=== PATIENT | male | born 1980 ===

== ENCOUNTER 2022-03-08 13:22 | Day surgery (SDC) | payer SELFPAY ==
[2022-03-08] MEDS ORDERED: Boostrix 0.5 ML (Tdap) VIAL ONE (13:36)
[2022-03-08] MEDS ORDERED: Bacitracin 1 PK ONE (13:36)
[2022-03-08] MEDS ORDERED: Lidocaine 1% PF 5 ML VIAL ONE ×2 (13:38→18:29)
[2022-03-08] MEDS ORDERED: HYDROcodone/Acetaminophen 5/325 mg Tablet ONE (14:09)
[2022-03-08] MEDS ORDERED: CEFAZOLIN 2 GM VIAL ONE ×2 (14:20→18:16)
[2022-03-08 15:51] LABS: SARS-CoV-2 NAA Rapid Test Not Detected (NotDetected)
[2022-03-08] MEDS ORDERED: Neomycin-Polymyxin 1 ML AMP ONE (18:01)
[2022-03-08] MEDS ORDERED: Bupivacaine 0.25% HCL 30 ML VIAL ONE (18:01)
[2022-03-08] MEDS ORDERED: Bacitracin Zinc Ointment 30 gm TUBE ONE (18:01)
[2022-03-08] MEDS ORDERED: Bupivacaine PF 0.5% 30 ML VIAL ONE (18:01)
[2022-03-08] MEDS ORDERED: HYDROmorphone 0.5 MG/0.5 ML SYRINGE ONE (18:10)
[2022-03-08] MEDS ORDERED: Sodium Chloride 0.9% 100 ML ONE (18:16)
[2022-03-08] MEDS ORDERED: Ketorolac Tromethamine 30 MG/ML VIAL ONE (18:29)
[2022-03-08] MEDS ORDERED: PROPOFOL 200 MG/20 ML VIAL ONE (18:29)
[2022-03-08] MEDS ORDERED: Ondansetron PF 4 MG/2 ML Vial ONE (18:29)
[2022-03-08] MEDS ORDERED: Dexamethasone 20 MG/5 ML VIAL ONE (18:29)
== END 2022-03-08 21:00 | disposition home or self-care (01) ==
LOC: ERS 13:22 → SDC 16:13
PROVIDERS: ATTEND Orthopaedic Surgery Hand Surgery
PROC: 0PBV0ZZ Excision of Left Finger Phalanx, Open Approach (ICD-10-PCS; principal; 2022-03-08)
PROC: 0HQQXZZ Repair Finger Nail, External Approach (ICD-10-PCS; principal; 2022-03-08)
DX: S62.631B Displaced fracture of distal phalanx of left index finger, initial encounter for open fracture (principal); Z20.822 Contact with and (suspected) exposure to COVID-19; W31.2XXA Contact with powered woodworking and forming machines, initial encounter
CPT/HCPCS: 76000; 90715; J0690; J1100; J1170; J1885; J2405; J2704; J3490; S0020; U0002